=== PATIENT | female | born 1950 | race African-American/Black ===

== ENCOUNTER 2019-05-21 07:10 | Emergency (ER) | payer MEDICARE, MEDICAID ==
[~2019-05-21] VITALS: Ht 167.6 cm; Wt 60.0 kg
[2019-05-21] MEDS ORDERED: KETOROLAC 60MG/2ML VIAL IM ONE (07:45)
[2019-05-21 10:35] VITALS: BP 146/74
== END 2019-05-21 10:40 | disposition home or self-care (01) ==
LOC: ER 07:32
DX: M25.861 Other specified joint disorders, right knee (principal); I10 Essential (primary) hypertension; Z90.49 Acquired absence of other specified parts of digestive tract; Z98.890 Other specified postprocedural states; Z90.710 Acquired absence of both cervix and uterus; Z90.89 Acquired absence of other organs
CPT/HCPCS: 73564; 96372; 99283; J1885